=== PATIENT | male | born 1990 | race Caucasian/White ===

== ENCOUNTER 2017-07-04 20:36 | Emergency (ER) | payer MEDICAID ==
[~2017-07-04] VITALS: Ht 182.9 cm; Wt 95.2 kg
[2017-07-04] MEDS ORDERED: LISINOPRIL20 MG PO (20:49)
== END 2017-07-04 22:13 | disposition home or self-care (01) ==
LOC: ED 20:36
PROC: 0HQ1XZZ Repair Face Skin, External Approach (ICD-10-PCS; principal; 2017-07-04)
DX: S01.81XA Laceration without foreign body of other part of head, initial encounter (principal); S16.1XXA Strain of muscle, fascia and tendon at neck level, initial encounter; S00.93XA Contusion of unspecified part of head, initial encounter; R00.0 Tachycardia, unspecified; F17.200 Nicotine dependence, unspecified, uncomplicated; Z91.040 Latex allergy status; Y04.8XXA Assault by other bodily force, initial encounter
CPT/HCPCS: 12013; 72040; 90471; 90715; 99283